=== PATIENT | female | born 1990 | race American Indian/Alaskan Native ===

== ENCOUNTER 2016-11-26 23:12 | Emergency (ER) | payer OTHER ==
[2016-11-26 23:32] VITALS: BP 119/59
--- NOTE | 2016-11-27 03:50 | Emergency Department Report ---
HPI - General Chief Complaint: Earache Time Seen by Provider: 11/27/16 03:14 - HPI HPI: 26-year-old female presents to ED complaining of right earache 2 days patient states ear pain began 2 days ago. Patient states first occurrence. Patient states air makes the pain worse. Patient denies drinking in ears or dizziness Patient denies any fever/chills/nausea/vomiting/chest pain/sore throat/ shortness of breath/any other problems. ED Past Medical Hx - Past Medical History Previous Medical History?: No - Surgical History Past Surgical History?: No - Social History Smoking Status: Never Smoker Substance Use Type: None - Medications Home Medications: Home Medications Medication Instructions Recorded Confirmed Last Taken Type Amoxicillin [Trimox CAP] 500 mg PO Q8H #30 capsule 11/27/16 Unknown Rx Ibuprofen [Motrin 800 MG tab] 800 mg PO Q8HR PRN #30 tablet 11/27/16 Unknown Rx ED Review of Systems ROS: Stated complaint: RIGHT EAR PAIN Other details as noted in HPI Constitutional: denies: chills, fever Eyes: denies: eye pain, eye discharge, vision change ENT: ear pain (right). denies: throat pain, dental pain, hearing loss, congestion Respiratory: denies: cough, shortness of breath, wheezing Cardiovascular: denies: chest pain, palpitations Endocrine: no symptoms reported Gastrointestinal: denies: abdominal pain, nausea, diarrhea Genitourinary: denies: urgency, dysuria, discharge Musculoskeletal: denies: back pain, joint swelling, arthralgia Skin: denies: rash, lesions Neurological: denies: headache, weakness, paresthesias Psychiatric: denies: anxiety, depression Hematological/Lymphatic: denies: easy bleeding, easy bruising Physical Exam - Physical Exam Vital Signs: Vital Signs 11/26/16 11/26/16 23:31 23:35 Temperature 98 F 98.0 F Pulse Rate 80 80 Respiratory 20 20 Rate Blood Pressure 119/59 Blood Pressure 119/59 [Right] O2 Sat by Pulse 100 100 Oximetry Physical Exam: GENERAL: Alert and oriented x3, no apparent distress, Normal Gait, atraumatic. HEAD: Head is normocephalic and a-traumatic. EYES: Extra ocular muscles are intact. Pupils are equal, round, and reactive to light and accommodation. No nystagmus no nystati EARS: Symetrical, atraumatic, non tender, ear canal clear and no cerumen, Right tympanic membrance inflamed. R ear effusion. Gross auditory nml bilaterally. NOSE: Nose symetrical, Nontender,Nares appeared normal. MOUTH:Mouth is well hydrated and without lesions. Tonsils nonerythematous or swollen, Uvula midline, Tongue not elevated. Mucous membranes are moist. Posterior pharynx clear, no exudate or lesions. Patent airways. NECK: Supple. Non edematous, No carotid bruits. No lymphadenopathy or thyromegaly. LUNGS: Symetrical with respiration, No wheezing, no rales or crackles, CTAB. HEART: S1, S2 present, regular rate and rhythm without murmur, no rubs, no gallops. ABDOMEN: No organomegaly was noted,Positive bowel sounds, soft, and non- distended. . Nontender to palpation on all Quadrants, NO CVA tenderness. EXTREMITIES/MUSCULOSKELETAL: No cyanosis, clubbing, rash, lesions or edema. Full ROM bilaterally. UE/LE Pulses 2+ bilaterally. LE and UE 5+ strength bilaterally SKIN: Warm and dry, No lesions, No ulceration or induration present. ED Course Vital Signs 11/26/16 11/26/16 23:31 23:35 Temperature 98 F 98.0 F Pulse Rate 80 80 Respiratory 20 20 Rate Blood Pressure 119/59 Blood Pressure 119/59 [Right] O2 Sat by Pulse 100 100 Oximetry ED Medical Decision Making - Medical Decision Making 26-year-old female presents. Right otitis media Vital signs stable. Discussed the patient will follow up with primary care physician and ENT as referred Discussed with patient that otitis media usually resolves on its own but Discussed antibiotic therapy and pain control with Motrin. Discuss follow-up with ENT specialist Critical care attestation.: If time is entered above; I have spent that time in minutes in the direct care of this critically ill patient, excluding procedure time. ED Disposition Clinical Impression: Otitis media Qualifiers: Laterality: right Chronicity: acute Spontaneous tympanic membrane rupture: without spontaneous rupture Disposition: DISCHARGED TO HOME OR SELFCARE Is pt being admited?: No Does the pt Need Aspirin: No Condition: Stable Instructions: Otitis Media (ED), Earache (ED) Prescriptions: Ibuprofen [Motrin 800 MG tab] 800 mg PO Q8HR PRN #30 tablet PRN Reason: Pain Amoxicillin [Trimox CAP] 500 mg PO Q8H #30 capsule Referrals: TARAS MOESR MD [Primary Care Provider] - 3-5 Days [facility] [Outside] - 3-5 Days [facility] - 3[facility]5 Days [facility] [Outside] - 3-5 Days [facility] [Outside] - 3-5 Days YESSI SPRING MD [Staff Physician] - 3-5 Days ROGE MARSHALL MD [Staff Physician] - 3-5 Days ANDREW SERVIN MD [Staff Physician] - 3-5 Days REGINA BIRCH MD [Staff Physician] - 3-5 Days Forms: Work/School Release Form(ED) Time of Disposition: 03:56
== END 2016-11-27 04:33 | disposition home or self-care (01) ==
LOC: ED 23:12
DX: H66.001 Acute suppurative otitis media without spontaneous rupture of ear drum, right ear (principal)
CPT/HCPCS: 99282

== ENCOUNTER 2019-10-27 00:50 | Inpatient (IN) | payer MEDICAID ==
[2019-10-27] MEDS ORDERED: TERBUTALINE 1 MG/1 ML INJ SUB-Q PRN (01:14)
[2019-10-27] MEDS ORDERED: TERBUTALINE 1 MG/1 ML INJ IVP PRN (01:14)
[2019-10-27] MEDS ORDERED: BUTORPHANOL 2 MG/1 ML INJ IV PRN (01:14)
[2019-10-27] MEDS ORDERED: MINERAL OIL 30 ML ORAL LIQD PO PRN (01:14)
[2019-10-27] MEDS ORDERED: ePHEDrine SULFATE 50 MG/1 ML INJ IV PRN (01:14)
[2019-10-27] MEDS ORDERED: fentaNYL 100 MCG/2 ML INJ IV PRN (01:14)
[2019-10-27] MEDS ORDERED: AMPICILLIN/NS 2 GM/100 ML 2 GM/100 ML BAG IV ONE (01:14)
[2019-10-27 01:55] LABS: Hematocrit 38.5 % (30.3-42.9); Hemoglobin 12.9 gm/dl (10.1-14.3)
[2019-10-27] MEDS ORDERED: OXYTOCIN 20 UNIT/1000ML DRIP 20 UNITS/1,000 ML BAG IV SCH ×2 (02:00→03:00)
[2019-10-27] MEDS ORDERED: LACTATED RINGERS 1,000 ML IV SCH (02:00)
--- NOTE | 2019-10-27 02:36 | History and Physical Report ---
History of Present Illness Date of examination: 10/27/19 Date of admission: 10/27/19 01:59 Chief complaint: Labor History of present illness: Pt is a 29yo BF EDC 11/02/19; EGA 39 1/7 weeks presents to L&D complaining of RUC's q 3-4 mins. She received late care at [facility] since 35 weeks and course has been unremarkable. records were not available on admission, but present now. GBS is negative. Past History Past Medical History: no pertinent history Past Surgical History: no surgical history Social history: no significant social history, single - Obstetrical History Expected Date of Delivery: 11/02/19 Actual Gestation: 39 Week(s) 1 Day(s) : 4 Medications and Allergies Allergies Allergy/AdvReac Type Severity Reaction Status Date / Time No Known Allergies Allergy Unverified 03/23/15 11:05 Home Medications Medication Instructions Recorded Confirmed Last Taken Type Amoxicillin [Trimox CAP] 500 mg PO Q8H #30 capsule 11/27/16 10/27/19 Unknown Rx Ibuprofen [Motrin 800 MG tab] 800 mg PO Q8HR PRN #30 tablet 11/27/16 10/27/19 Unknown Rx Ibuprofen [Motrin] 600 mg PO Q8H PRN #30 tablet 08/27/18 10/27/19 Unknown Rx oxyCODONE /ACETAMINOPHEN [Percocet 1 tab PO Q6HR PRN #20 tablet 08/27/18 10/27/19 Unknown Rx 5/325] Vitamin 1 tab PO 10/27/19 10/25/19 10:00 History 1 tab Active Meds: Active Medications Butorphanol Tartrate (Stadol) 2 mg IV Q2H PRN PRN Reason: Pain , Severe (7-10) Ephedrine Sulfate (Ephedrine Sulfate) 10 mg IV Q2M PRN PRN Reason: Hypotension Fentanyl (Sublimaze) 100 mcg IV Q2H PRN PRN Reason: Labor Pain Last Admin: 10/27/19 01:35 Dose: 100 mcg Documented by: Oxytocin/Sodium Chloride (Pitocin/Ns 20 Unit/1000ml Drip) 20 units in 1,000 mls @ 125 mls/hr IV DIRECT SELENE Lactated Ringer's (Lactated Ringers) 1,000 mls @ 125 mls/hr IV DIRECT SELENE Last Admin: 10/27/19 01:36 Dose: 125 mls/hr Documented by: Mineral Oil (Mineral Oil) 30 ml PO QHS PRN PRN Reason: Constipation Terbutaline Sulfate (Brethine) 0.25 mg SUB-Q ONCE PRN PRN Reason: Hyperstimulation/Hypertonicity Terbutaline Sulfate (Brethine) 0.25 mg IVP ONCE PRN PRN Reason: Hyperstimulation/Hypertonicity Review of Systems All systems: negative - Vital Signs Vital signs: Vital Signs Resp 180 H 10/27/19 01:35 Temp Pulse Resp BP Pulse Ox 83 180 H 116/57 10/27/19 02:30 10/27/19 01:35 10/27/19 02:30 - Physical Exam Breasts: Positive: deferred Cardiovascular: Regular rate Lungs: Positive: Clear to auscultation Abdomen: Positive: normal appearance Genitourinary (Female): Positive: normal external genitalia Vagina: Positive: normal moisture Uterus: Positive: enlarged Extremities: Positive: normal - Obstetrical FHR: category 1 Uterine Contraction Monitor Mode: External Cervical Dilatation: 10 Cervical Effacement Percentage: 100 station: +1 Uterine Contraction Pattern: Regular Uterine Tone Measurement Phase: Contraction Uterine Contraction Intensity: Strong/Firm Results Result Diagrams: 10/27/19 01:29 All other labs normal. Assessment and Plan - Patient Problems (1) 39 weeks gestation of Onset Date: 10/27/19 Current Visit: Yes Status: Acute Plan to address problem: A: IUP @ 39 1/7 weeks in labor GBS Negative P: Admit to L&D for expectant vaginal delivery
[2019-10-27] MEDS ORDERED: PROMETHAZINE 25 MG TAB PO PRN (02:37)
[2019-10-27] MEDS ORDERED: ACETAMINOPHEN 325 MG TAB PO PRN (02:37)
[2019-10-27] MEDS ORDERED: diphenhydrAMINE 25 MG CAP PO PRN (02:37)
[2019-10-27] MEDS ORDERED: MAGNESIUM HYDROXIDE (MOM) ORAL LIQD UDC PO PRN (02:37)
[2019-10-27] MEDS ORDERED: WITCH HAZEL/ GLYCERIN PAD TP PRN (02:37)
[2019-10-27] MEDS ORDERED: ONDANSETRON 4 MG/2 ML INJ IV PRN (02:37)
[2019-10-27] MEDS ORDERED: PROMETHAZINE 25 MG RECT SUPP PR PRN (02:37)
[2019-10-27] MEDS ORDERED: LANOLIN/ZINC/DIMETHICONE (LANSINOH) 7 GM TP PRN (02:37)
--- NOTE | 2019-10-27 02:43 | Procedure Note ---
OB Delivery Note - Delivery Date of Delivery: 10/27/19 Surgeon: YOSEPH DUNHAM Estimated blood loss: 100cc - Vaginal Delivery presentation: vertex Delivery position: OA Intrapartum events: none Delivery induction: AROM Delivery augmentation: pitocin Delivery monitor: external FHT, external uterine Route of delivery: Delivery placenta: spontaneous Delivery cord: 3 umbilical vessels Episiotomy: none Delivery laceration: none Anesthesia: none Delivery comments: Infant delivered OA and placed on Mom's chest for [id number] bonding and delayed cord clamping, cut by Dad - Infant A at 1 minute: 8 at 5 minutes: 9 Infant Gender: Male (2608gms)
[2019-10-27] MEDS: IBUPROFEN 600 MG TAB PO SCH ×2 (04:30→23:15)
[2019-10-27] MEDS: HYDROcodone/ACETAMINOPHEN 5-325 MG TAB PO PRN ×4 (04:37→22:24)
[2019-10-27] MEDS: PRENATAL VIT27-FE FUMARATE-FOLIC ACID VIT TAB PO SCH (09:57)
[2019-10-27] MEDS: FERROUS SULFATE 325 MG TAB PO SCH ×2 (09:57→22:24)
[2019-10-27] MEDS: DOCUSATE SODIUM 100 MG CAP PO SCH ×2 (09:57→22:25)
[2019-10-27 15:38] LABS: Hematocrit 37.2 % (30.3-42.9); Hemoglobin 12.6 gm/dl (10.1-14.3)
[2019-10-28] MEDS ORDERED: MEASLES, MUMPS & RUBELLA 12,500 UNIT/0.5 ML VACCINE SUB-Q ONE (02:37)
[2019-10-28] MEDS: IBUPROFEN 600 MG TAB PO SCH ×2 (03:35→10:29)
[2019-10-28] MEDS: HYDROcodone/ACETAMINOPHEN 5-325 MG TAB PO PRN (05:35)
[2019-10-28] MEDS ORDERED: TETANUS,DIPH,PERTUSS(ACELL) VACCINE 0.5 ML SYRINGE IM ONE (06:00)
[2019-10-28] MEDS: DOCUSATE SODIUM 100 MG CAP PO SCH (10:30)
[2019-10-28] MEDS: FERROUS SULFATE 325 MG TAB PO SCH (10:30)
[2019-10-28] MEDS: PRENATAL VIT27-FE FUMARATE-FOLIC ACID VIT TAB PO SCH (10:30)
--- NOTE | 2019-10-28 11:03 | Progress Note ---
Assessment and Plan - Patient Problems (1) 39 weeks gestation of Onset Date: 10/27/19 Current Visit: Yes Status: Resolved (2) (normal spontaneous vaginal delivery) Onset Date: 10/28/19 Current Visit: Yes Status: Resolved Plan to address problem: A: S/P - PPD #1 Doing well Desires Depoprovera for contraception P: May go home today. Subjective - Subjective Date of service: 10/28/19 Principal diagnosis: s/p - PPD #1 Interval history: Pt is feeling well without complaints. Bleeding improved. Desires Depoprovera for contraception. Patient reports: appetite normal, voiding normally, pain well controlled, flatus, ambulating normally, no dizzy ambulation, no nauseated : doing well, bottle feeding Objective - Vital Signs Latest vital signs: Vital Signs Temp Pulse Resp BP Pulse Ox 10/28/19 08:36 96.9 F L 68 18 123/69 100 10/28/19 06:35 18 10/28/19 05:35 18 10/28/19 03:35 18 10/28/19 00:59 98.0 F 66 20 126/74 100 10/27/19 23:24 18 10/27/19 22:24 18 10/27/19 16:43 20 10/27/19 16:15 97.9 F 76 20 110/65 97 10/27/19 11:40 97.9 F 67 20 111/66 100 Intake and Output 10/27/19 10/28/19 10/28/19 22:59 06:59 14:59 Intake Total 240 480 Balance 240 480 Intake: Oral 240 480 Other: Total, Intake Amount 120 480 # Voids Void 1 1 # Bowel Movements 1 - Exam Breasts: Present: deferred Abdomen: Present: normal appearance, soft Uterus: Present: normal, firm, fundal height below umbilicus Extremities: Present: normal - Labs Labs: Laboratory Tests 10/27/19 10/27/19 10/27/19 01:29 01:29 15:10 Hgb 12.9 12.6 Hct 38.5 37.2 Blood Type O POSITIVE Antibody Screen Positive Antibody Identification Anti-M Antigen Identification Cancelled
--- NOTE | 2019-10-28 11:20 | Discharge Summary ---
Providers - Providers Date of Admission: 10/27/19 01:59 Date of discharge: 10/28/19 Attending physician: YOSEPH DUNHAM Primary care physician: YOSEPH DUNHAM Hospitalization Reason for admission: active labor, rupture of membranes, IUP at term Delivery: Episiotomy: none Laceration: none Other procedures: none complications: none Discharge diagnosis: IUP at term delivered [place] baby: male Hospital course: Unremarkable. Condition at discharge: Good Disposition: DC-01 TO HOME OR SELFCARE - Discharge Diagnoses (1) 39 weeks gestation of Status: Resolved (2) (normal spontaneous vaginal delivery) Status: Resolved Plan - Discharge Medications Prescriptions: Ibuprofen [Motrin 600 MG tab] 600 mg PO Q6H #30 tablet Vit-Fe Fumar-FA [ Vitamin] 1 each PO QDAY #30 tablet - Provider Discharge Summary Activity: routine, no sex for 6 weeks, no heavy lifting 4 weeks, no strenuous exercise Diet: routine Instructions: routine Additional instructions: [] Smoking cessation referral if applicable(refer to patient education folder for contact #) [] Refer to [facility] Booklet Call your doctor immediately for: * Fever > 100.5 * Heavy vaginal bleeding ( >1 pad per hour) * Severe persistent headache * Shortness of breath * Reddened, hot, painful area to leg or breast * Drainage or odor from incision. * Keep incision clean and dry at all times and follow doctor's instructions regarding bathing/showering - Follow up plan Follow up: YOSEPH DUNHAM MD [Primary Care Provider] - 6 Weeks
[2019-10-28] MEDS ORDERED: medroxyPROGESTERone ACETATE 150 MG/ML SYRINGE IM NR (11:30)
[2019-10-28 16:17] VITALS: BP 123/66
== END 2019-10-28 16:10 | disposition home or self-care (01) | DRG 775 ==
LOC: TRG 00:50 → LD 01:49 → TRG 01:59 → OB 04:22
PROVIDERS: ADMIT Obstetrics & Gynecology; ATTEND Obstetrics & Gynecology
PROC: 10E0XZZ Delivery of Products of Conception, External Approach (ICD-10-PCS; principal; 2019-10-27)
PROC: 10907ZC Drainage of Amniotic Fluid, Therapeutic from Products of Conception, Via Natural or Artificial Opening (ICD-10-PCS; 2019-10-27)
PROC: 3E0234Z Introduction of Serum, Toxoid and Vaccine into Muscle, Percutaneous Approach (ICD-10-PCS; 2019-10-28)
PROC: 3E0134Z Introduction of Serum, Toxoid and Vaccine into Subcutaneous Tissue, Percutaneous Approach (ICD-10-PCS; 2019-10-28)
DX: O80 Encounter for full-term uncomplicated delivery (principal); Z3A.39 39 weeks gestation of pregnancy; Z37.0 Single live birth; Z79.899 Other long term (current) drug therapy; Z23 Encounter for immunization
CPT/HCPCS: 36415; 85014; 85018; 86850; 86870; 86900; 86901; 96360; 96365; 96374; G0378; J0290; J1050; J2590; J3010; J7120

== ENCOUNTER 2021-05-26 23:00 | Emergency (ER) | payer MEDICAID ==
[2021-05-26 23:32] VITALS: BP 139/97
[2021-05-27 00:18] LABS: Basophils # (Auto) 0.1 K/mm3 (0.0-0.1); Basophils % (Auto) 0.8 % (0.0-1.8); Eosinophils # (Auto) 0.2 K/mm3 (0.0-0.4); Eosinophils % (Auto) 2.4 % (0.0-4.3); Hematocrit 31.9 % (30.3-42.9); Hemoglobin 10.9 gm/dl (10.1-14.3); Lymphocytes # (Auto) 1.3 K/mm3 (1.2-5.4); Lymphocytes % (Auto) 17.5 % (13.4-35.0); Mean Corpuscular HGB Conc 34 % (30-34); Mean Corpuscular Volume 89 fl (79-97); Monocytes # (Auto) 0.6 K/mm3 (0.0-0.8); Monocytes % (Auto) 8.3 % (0.0-7.3); Platelet Count 312 K/mm3 (140-440); Red Blood Count 3.58 M/mm3 (3.65-5.03); Red Cell Distribution Width 13.4 % (13.2-15.2)
[2021-05-27 00:22] LABS: Alanine Aminotransferase 9 units/L (7-56); Albumin 3.6 g/dL (3.9-5); Blood Urea Nitrogen 8 mg/dL (7-17); Calcium 8.6 mg/dL (8.4-10.2); Hemolysis Index 0
[2021-05-27 00:23] LABS: BUN/Creatinine Ratio 13
== END 2021-05-27 01:00 | disposition left against medical advice (07) ==
LOC: ED 23:00
DX: M79.89 Other specified soft tissue disorders (principal); Z53.21 Procedure and treatment not carried out due to patient leaving prior to being seen by health care provider
CPT/HCPCS: 36415; 80053; 85025